=== PATIENT | male | born 2000 | race Caucasian/White ===

== ENCOUNTER 2024-05-15 06:21 | Emergency (ER) | payer BC, SELFPAY ==
[2024-05-15 06:30] VITALS: BP 130/92; PULSE 74; RESP 20; TEMP 36.7; O2SAT 99; BMI 25.5
[2024-05-15] MEDS: LOPERAMIDE HCL 2 MG CAPSULE 4 MG PO (06:45)
[2024-05-15] MEDS: ONDANSETRON ODT 4 MG TAB PO (06:45)
[2024-05-15 06:52] VITALS: BP 125/82; PULSE 70; RESP 20; TEMP 36.7; O2SAT 99
--- NOTE | 2024-05-15 06:55 | ED.GENADULT ---
HPI - General Adult General Chief complaint: Nausea/Vomiting Stated complaint: Thinks food poisoning Time Seen by Provider: 05/15/24 06:22 History of Present Illness HPI narrative: 24-year-old male presents to the ED with 3 days of intermittent vomiting and diarrhea. Thinks he may have had a bad batch of mac and cheese. But on specific questioning, he made it himself, fully cooked the ingredients. The ingredients were reviewed and this was fairly low risk. He reports that his dog also ate some and had an episode of vomiting the next day. Patient symptoms started more than 12 hours after eating the potentially contaminated food. There were no high-risk foods like on washed fruits and vegetables, bagged salad, managed Eric based ingredients, etc.. He is not having any bloody diarrhea, there is no fever. No severe abdominal pain. He has stayed home for the past few days. He tried a couple doses of Pepto with no improvement. Has not tried Imodium. He is not immunocompromised, not on chemotherapy. Does not take any long-term medications. No injury or trauma, no hematuria, hematemesis or other systemic symptoms. Past medical history benign per his report, no major long-term health problems. No prescription medications, no allergies. Nonsmoker. ROS notable for the GI symptoms as above only, otherwise denies times 12 systems. Related Data Previous Rx's ?Medication ?Instructions ?Recorded ondansetron 4 mg disintegrating 4 mg PO Q6H PRN nausea and 05/15/24 tablet vomiting #10 tabs Allergies Allergy/AdvReac Type Severity Reaction Status Date / Time No Known Drug Allergies Allergy Verified 05/15/24 06:32 [facility] Medical History Anxiety ?F41.9 - Anxiety disorder, unspecified (ICD-10) Depression ?F32.A - Depression, unspecified (ICD-10) Surgical History History of wisdom tooth extraction ?K08.409 - Partial loss of teeth, unspecified cause, unspecified class (ICD-10) Social History Smoking Status: Never smoker Do you use any of these nicotine containing products: Vaping Products Second hand tobacco smoke exposure: No How often do you have a drink containing alcohol: never AUDIT-C Alcohol total score: 0 Non-prescribed substance use: denies use Exam Const: Vital Signs, click to edit/add: Vital Signs - 24 hr 05/15/24 06:30 05/15/24 06:52 Temperature 98.0 F 98.0 F Pulse Rate [Right Pulse Oximeter] 74 70 Respiratory Rate 20 20 Blood Pressure [Ri ght Upper Arm] 130/92 H 125/82 Pulse Oximetry 99 99 Oxygen Delivery Me thod Room Air Room Air Documenting provider has reviewed patient's vital signs: yes Common normals: no apparent distress General appearance: cooperative and well kempt HENMT: Common normals: normocephalic Head and scalp: normocephalic Mouth: oral and palatal mucosa normal Throat: posterior oropharynx normal Eye: Common normals: conjunctivae normal General eye: normal appearance of both eyes Conjunctiva: conjunctiva(e) normal Neck & C-Spine: Common normals: full ROM and no lymphadenopathy Resp: Common normals: normal respiratory effort, no use of accessory muscles and clear to auscultation bilaterally Effort & inspection: able to speak in complete sentences Auscultation: clear to auscultation bilaterally Cardio: Common normals: regular rate, regular rhythm, S1 normal heart sound, S2 normal heart sound and no murmurs Rate: regular rate Rhythm: regular rhythm Heart sounds: S1 normal and S2 normal GI: Common normals: Normal to inspection, nondistended, normoactive bowel sounds present, soft to palpation, non-tender, no hepatosplenomegaly and no masses Palpation: soft and no hepatosplenomegaly Neuro: Speech: speech normal Gait (neuro): normal gait Motor exam: no movement abnormalities noted Psych: Appearance: well kempt Activity/motor behavior: appropriate eye contact Mood and affect: euthymic mood Insight: fair Judgement: fair Skin: Common normals: no rashes or lesions noted General skin exam: no rashes or lesions noted Course Course ED Course: Otherwise healthy 24-year-old male with a few days of nonbloody vomiting and diarrhea. No fever or severe pain that would warrant further investigation. Recommended symptomatic treatment. Differential diagnosis also including gastroenteritis, possible food poisoning, enteritis, colitis, obstruction, pancreatitis, gallbladder disease, amongst many others. Based on benign exam, history and normal vital signs, these are less likely. Symptomatic treatment given with Zofran 4 mg p.o. x1 with 4 mg of Imodium. Counseled to eat a bland diet, push fluids. 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 Work note given, return to work tomorrow. Alarm symptoms reviewed that would warrant ED presentation. Patient verbalized understanding and agreement. Vital Signs Vital signs: Initial Vital Signs Temperature 98.0 F 05/15/24 06:30 Temperature Source Temporal Artery Scan 05/15/24 06:30 Pulse Rate 74 05/15/24 06:30 Respiratory Rate 20 05/15/24 06:30 Blood Pressure 130/92 H 05/15/24 06:30 Blood Pressure Mean 104 05/15/24 06:30 Blood Pressure Position Sitting 05/15/24 06:30 Pulse Oximetry 99 05/15/24 06:30 Oxygen Delivery Method Room Air 05/15/24 06:30 Vital Signs Temperature 98.0 F 05/15/24 06:30 Pulse Rate 74 05/15/24 06:30 Respiratory Rate 20 05/15/24 06:30 Blood Pressure 130/92 H 05/15/24 06:30 Pulse Oximetry 99 05/15/24 06:30 Oxygen Delivery Method Room Air 05/15/24 06:30 Temperature 98.0 F 05/15/24 06:52 Pulse Rate 70 05/15/24 06:52 Respiratory Rate 20 05/15/24 06:52 Blood Pressure 125/82 05/15/24 06:52 Pulse Oximetry 99 05/15/24 06:52 Oxygen Delivery Method Room Air 05/15/24 06:52 Medications Administered Medications: Generic Name Dose Route Start Last Admin Trade Name Freq PRN Reason Stop Dose Admin Loperamide HCl 4 mg 05/15/24 06:44 05/15/24 06:45 Loperamide Hcl 2 Mg Capsule PO 05/15/24 06:45 4 mg ONCE ONE Administration Ondansetron HCl 4 mg 05/15/24 06:44 05/15/24 06:45 Ondansetron Odt 4 Mg Tab PO 05/15/24 06:45 4 mg ONCE ONE Administration Discharge Plan Discharge Clinical Impression: Gastroenteritis Patient Disposition: Home, Self-Care Condition: Stable Instructions: Acute Nausea and Vomiting (DC) Additional Instructions: As we discussed, there is no way to tell if this is a viral illness or food poisoning. Though most cases are related to viral illnesses which can also be transmitted to pets. There only test to look for the causes for the toxin mediated bacterial infections and antibiotics are not indicated unless it is 1 of the rare bacterial stomach infections that also causes bloody diarrhea. These illness these will run their course typically in 5 days. To make you more comfortable, I will offer some symptomatic treatment. We have given you Zofran which is an anti nausea medicine here in the ED. I will send additional prescription to your pharmacy. Take 1 pill up to every 6 hours as needed for nausea and vomiting. For the diarrhea, your given 2 tablets of Imodium. Continue taking this up to 8 times per day as needed for additional bouts of diarrhea. For many, a single dose is effective. For pain, recommend Tylenol 1000 mg every 6 hours and or ibuprofen 600 mg every 6 hours. These are typically not needed to be evaluated in an emergency department, but if you have very high fever over 100.4+ severe pain plus bloody diarrhea or so weak that you can ambulate from her bed to the bathroom, you should be re-evaluated. Otherwise, symptoms can linger for up to 7 days. If you still have symptoms at the 2 week radha, please make a follow-up appointment in the primary care clinic to be re-evaluated for other potential chronic conditions. You may return to work tomorrow. Soft, bland diet with lots of fluids for the next few days. Activity Level: Activity as Tolerated Discharge Diet: Regular Prescriptions: New ondansetron 4 mg tablet,disintegrating 4 mg PO Q6H PRN (Reason: nausea and vomiting) Qty: 10 0RF Stand Alone Forms: [employer] Info Instructions
--- OUTSIDE RECORDS SUMMARY | 2024-05-15 06:57 | XMS_ITS | Clinical Summary ---
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 90 Capsule 2 03/13/2024 Active Active Problems No known active problems Encounters Date Type Department Care Team Description 03/12/2024 Refill [facility] [address] [address] Linda Turk MD Refill Request (Fluoxetine) from Last 3 Months Family History Medical History Relation Name Comments Depression Brother Diabetic kidney disease Father Asthma Mother Suicidality Paternal Uncle Good Health Sister Relation Name Status Comments Brother Father Mother Paternal Uncle Sister Social History Tobacco Use Types Packs/Day Years Used Date Smoking Tobacco: Former Cigarettes Smokeless Tobacco: Never Tobacco Cessation:Counseling Given: Not Answered Alcohol Use Standard Drinks/Week Comments Yes 0 (1 standard drink = 0.6 oz pur e alcohol) PHQ-2 Answer Date Recorded PHQ-2 TOTAL SCORE 2 01/17/2024 Social Connections Answer Date Recorded Frequency of Communication with Friends and Fami ly 4 11/09/2023 Financial Resource Strain Answer Date R ecorded Difficulty of Paying Living Expenses 2 11/09/2023 Difficulty of Paying Living Expenses 1 11/09/2023 Food Insecurity Answer Date Recorded Worried About Running Out of Food in the Last Ye ar 1 11/09/2023 Transportation Needs Answer Date Record ed Lack of Transportation (Medical) 1 11/09/2023 Housing Stability Answer Date Recorded Unable to Pay for Housing in the Last Year 1 11/09/2023 Sex and Gender Information Value Date Recorded Sex Assigned at Not on file Gender Identity Not on file Sexual Orientation Not on file Obstetrics History Last Filed Vital Signs Vital Sign Reading Time Taken Comments Blood Pressure 129/81 01/17/2024 11:35 AM CDT Pulse 74 01/17/2024 11:35 AM CDT Temperature - - Respiratory Rate - - Oxygen Saturation 98% 01/17/2024 11:35 AM CDT Inhaled Oxygen Concentration - - Weight 86.2 kg (190 lb) 01/17/2024 11:35 AM CDT Height 176.1 cm (5' 9.33) 11/09/2023 12:[address] Body Mass Index 27.79 11/09/2023 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 PCP - General 11/09/23
[2024-05-15 06:59] VITALS: BP 125/82; PULSE 70; RESP 20; TEMP 36.7
== END 2024-05-15 07:00 | disposition home or self-care (01) ==
LOC: ED 06:56
PROVIDERS: Emergency Provider Family Medicine
DX: K52.9 Noninfective gastroenteritis and colitis, unspecified (principal)
CPT/HCPCS: 99283; A9270